=== PATIENT | male | born 1980 | race Caucasian/White ===

== ENCOUNTER 2016-12-03 05:16 | Emergency (ER) | payer MEDICAID | END 2016-12-03 06:01 | disposition home or self-care (01) | LOC: D.ER 05:16 | DX: R11.10 Vomiting, unspecified (principal); T17.918A Gastric contents in respiratory tract, part unspecified causing other injury, initial encounter; X58.XXXA Exposure to other specified factors, initial encounter; Y93.89 Activity, other specified; Y92.89 Other specified places as the place of occurrence of the external cause; F17.200 Nicotine dependence, unspecified, uncomplicated ==